=== PATIENT | female | born 1975 | race Caucasian/White ===

== ENCOUNTER 2020-10-10 20:18 | Emergency (ER) | payer OTHER ==
--- NOTE | 2020-10-10 22:21 | ED ---
General Adult HPI - General Chief complaint: Recheck/Abnormal Lab/Rx Stated complaint: sent from custodial for covid exposure Time Seen by Provider: 10/10/20 20:54 Source: patient Mode of arrival: ambulatory Limitations: no limitations - History of Present Illness Initial comments: This patient is a 45-year-old woman currently staying at a woman's custodial, who had a coronal virus exposure. In order to be allowed back into the custodial, they require a negative virus test is what she is here to see about. The patient states she is not having any symptoms. Denies fever or chills, congestion, cough, dyspnea, vomiting or diarrhea. -: hour(s) Consistency: constant Improves with: none Worsens with: none Associated Symptoms: denies other symptoms Treatments Prior to Arrival: none Review of Systems ROS Statement: Those systems with pertinent positive or pertinent negative responses have been documented in the HPI. ROS Other: All systems not noted in ROS Statement are negative. Constitutional: Denies: fever, chills Eyes: Denies: eye discharge ENT: Denies: throat pain, congestion Respiratory: Denies: cough, dyspnea Cardiovascular: Denies: chest pain, palpitations Gastrointestinal: Denies: vomiting, diarrhea Genitourinary: Denies: dysuria Neurological: Denies: headache Past Medical History Past Medical History: No Reported History History of Any Multi-Drug Resistant Organisms: None Reported Past Surgical History: No Surgical Hx Reported Smoking Status: Current every day smoker Past Alcohol Use History: None Reported Past Drug Use History: None Reported General Exam Limitations: no limitations General appearance: alert, in no apparent distress Head exam: Present: atraumatic, normocephalic Eye exam: Present: normal appearance. Absent: scleral icterus, conjunctival injection ENT exam: Present: normal oropharynx Respiratory exam: Present: normal lung sounds bilaterally. Absent: respiratory distress, wheezes, rales, rhonchi, stridor Cardiovascular Exam: Present: regular rate, normal rhythm, normal heart sounds. Absent: systolic murmur, diastolic murmur, rubs, gallop Skin exam: Present: warm, dry, intact, normal color. Absent: rash Course Vital Signs 10/10/20 20:44 Temperature 98.5 F Pulse Rate 80 Respiratory 18 Rate Blood Pressure 143/85 O2 Sat by Pulse 99 Oximetry Medical Decision Making - Lab Data Lab Results 10/10/20 Range/Units 21:40 Coronavirus (PCR) Not Detected (Not Detectd) Disposition Clinical Impression: Exposure to COVID-19 virus Disposition: HOME SELF-CARE Condition: Good Instructions (If sedation given, give patient instructions): Normal Exam (ED) Referrals: Marcus Vallejo MD [Primary Care Provider] - 1-2 days
[2020-10-10 22:44] VITALS: BP 130/70; PULSE 81; RESP 16; TEMP 98.2
== END 2020-10-10 22:43 | disposition home or self-care (01) ==
LOC: EC 20:18
DX: Z20.822 Contact with and (suspected) exposure to COVID-19 (principal)
CPT/HCPCS: 87635; 99283

== ENCOUNTER 2020-11-30 12:57 | Emergency (ER) | payer OTHER ==
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
[2020-11-30] MEDS ORDERED: KETOROLAC 15 MG/ML 1 ML VIAL IVP STA (14:46)
[2020-11-30 15:02] VITALS: BP 115/84; PULSE 67; RESP 16; TEMP 98.1
== END 2020-11-30 14:55 | disposition home or self-care (01) ==
LOC: EC 12:57
DX: S22.20XA Unspecified fracture of sternum, initial encounter for closed fracture (principal); F17.200 Nicotine dependence, unspecified, uncomplicated; Z20.822 Contact with and (suspected) exposure to COVID-19; V49.50XA Passenger injured in collision with unspecified motor vehicles in traffic accident, initial encounter; Y92.410 Unspecified street and highway as the place of occurrence of the external cause
CPT/HCPCS: 71046; 71120; 93005; 96374; 99284

== ENCOUNTER 2021-06-03 09:52 | Emergency (ER) | payer OTHER ==
[2021-06-03 11:45] VITALS: RESP 18
[2021-06-03] MEDS ORDERED: DEXAMETHASONE SOD PHOSPHATE 10 MG/ML 1 ML VIAL IM STA (13:12)
[2021-06-03] MEDS ORDERED: ALBUTEROL HFA INHALER INHALATION STA (13:12)
--- NOTE | 2021-06-03 13:55 | XR ---
EXAMINATION TYPE: XR chest 2V DATE OF EXAM: 06/03/2021 COMPARISON: Chest x-ray November 30, 2020 HISTORY: Blurry vision. Shakiness. COVID. TECHNIQUE: Frontal and lateral views of the chest are obtained. FINDINGS: There is mild chronic parenchymal changes bilaterally without suspicious focal air space opacity, pleural effusion, or pneumothorax seen. The cardiac silhouette size is stab le and within normal limits. The osseous structures are intact. IMPRESSION: No acute process. No significant change from prior.
[2021-06-03] MEDS ORDERED: IBUPROFEN 600 MG TAB PO STA (14:04)
[2021-06-03] MEDS ORDERED: ACETAMINOPHEN TAB 325 MG TAB PO STA (14:04)
--- NOTE | 2021-06-03 14:05 | ED ---
General Adult HPI - General Chief complaint: ENT Stated complaint: covid swab Time Seen by Provider: 06/03/21 12:56 Source: patient, RN notes reviewed Mode of arrival: ambulatory Limitations: no limitations - History of Present Illness Initial comments: Patient is a 46-year-old female that presents to the emergency department complaining of ongoing symptoms of Covid. Patient tested positive for Covid on the . Patient notes that she came in for reevaluation to see if she still had Covid. Patient denied any new symptoms. Patient was otherwise well- appearing. She denied chest pain headache nausea vomiting diarrhea constipation fever fatigue chills. - Related Data Home Medications Medication Instructions Recorded Confirmed FLUoxetine HCL [PROzac] 40 mg PO HS 11/30/20 06/03/21 Gabapentin [Neurontin] 300 mg PO TID 11/30/20 06/03/21 tiZANidine HCL 4 mg PO BID PRN 11/30/20 06/03/21 Acetaminophen Tab [Tylenol Tab] 1,000 mg PO Q6HR PRN 06/03/21 06/03/21 Albuterol Sulfate [Proair Hfa] 1 - 2 puff INHALATION RT-Q6H PRN 06/03/21 06/03/21 Methadone HCl [Methadone Intensol] 108 mg PO DAILY 06/03/21 06/03/21 Allergies Allergy/AdvReac Type Severity Reaction Status Date / Time latex Allergy Rash/Hives Verified 06/03/21 13:28 lavender (Lavandula Allergy Rash/Hives Verified 06/03/21 13:28 angustifolia) baclofen AdvReac Severe Jittery, Verified 06/03/21 13:28 dizzy Review of Systems ROS Statement: Those systems with pertinent positive or pertinent negative responses have been documented in the HPI. ROS Other: All systems not noted in ROS Statement are negative. Past Medical History Past Medical History: Pneumonia Additional Past Medical History / Comment(s): Covid +, migraines History of Any Multi-Drug Resistant Organisms: None Reported Past Surgical History: Tonsillectomy Past Psychological History: Anxiety, Bipolar, PTSD Smoking Status: Current every day smoker Past Alcohol Use History: None Reported Past Drug Use History: Opiates General Exam Limitations: no limitations General appearance: alert, in no apparent distress Head exam: Present: atraumatic, normocephalic, normal inspection Eye exam: Present: normal appearance, PERRL, EOMI. Absent: scleral icterus, conjunctival injection, periorbital swelling ENT exam: Present: normal exam, mucous membranes moist Neck exam: Present: normal inspection. Absent: tenderness, meningismus, lymphadenopathy Respiratory exam: Present: normal lung sounds bilaterally. Absent: respiratory distress, wheezes, rales, rhonchi, stridor Cardiovascular Exam: Present: regular rate, normal rhythm, normal heart sounds. Absent: systolic murmur, diastolic murmur, rubs, gallop, clicks GI/Abdominal exam: Present: soft, normal bowel sounds. Absent: distended, tenderness, guarding, rebound, rigid Extremities exam: Present: normal inspection, full ROM, normal capillary refill. Absent: tenderness, pedal edema, joint swelling, calf tenderness Neurological exam: Present: alert, oriented X3 Psychiatric exam: Present: normal affect, normal mood Skin exam: Present: warm, dry, intact, normal color. Absent: rash Course Vital Signs 06/03/21 11:42 Temperature 100.0 F H Pulse Rate 82 Respiratory 18 Rate Blood Pressure 117/73 O2 Sat by Pulse 95 Oximetry Medical Decision Making - Medical Decision Making 26-year-old female Covid-positive 05/21/2021 for reevaluation of symptoms. A she was informed that the symptoms may linger and persist for several weeks to months. Patient informed that she would most likely still test positive so a repeat test is not warranted. Chest x-ray, 10 mg of Decadron, albuterol inhaler ordered. Chest x-ray shows no acute process. no change from prior. Patient is agreeable discharge home with follow-up to primary care. Vital signs are stable upon discharge. Case discussed with Dr. Yi, patient discharge home. - Radiology Data Radiology results: report reviewed, image reviewed Chest x-ray: No acute pulmonary process. No change from prior. Disposition Clinical Impression: COVID Disposition: HOME SELF-CARE Condition: Stable Instructions (If sedation given, give patient instructions): Coronavirus Disease 2019 (COVID-19) Additional Instructions: Please return to the Emergency Department if symptoms worsen or any other concerns. Is patient prescribed a controlled substance at d/c from ED?: No Referrals: Rosie Sweeney MD [Primary Care Provider] - 1-2 days Time of Disposition: 14:05
[2021-06-03 14:32] VITALS: BP 113/73; PULSE 88; TEMP 98.3
== END 2021-06-03 14:34 | disposition home or self-care (01) ==
LOC: EC 09:52
DX: U07.1 COVID-19 (principal); G43.909 Migraine, unspecified, not intractable, without status migrainosus; F41.9 Anxiety disorder, unspecified; F31.9 Bipolar disorder, unspecified; F43.10 Post-traumatic stress disorder, unspecified; Z79.51 Long term (current) use of inhaled steroids
CPT/HCPCS: 94640; 71046; 99283; 96372; J1100

== ENCOUNTER 2022-01-09 14:12 | Emergency (ER) | payer OTHER ==
[2022-01-09 16:03] VITALS: BP 90/58; PULSE 80; RESP 16; TEMP 98.4
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
== END 2022-01-09 17:01 | disposition home or self-care (01) ==
LOC: EC 14:12
DX: K02.9 Dental caries, unspecified (principal); F17.200 Nicotine dependence, unspecified, uncomplicated; Z91.040 Latex allergy status; Z91.048 Other nonmedicinal substance allergy status; Z88.6 Allergy status to analgesic agent

== ENCOUNTER 2022-02-13 15:29 | Emergency (ER) | payer OTHER ==
[2022-02-13] MEDS ORDERED: ONDANSETRON 4 MG/2 ML VIAL IVP STA (16:06)
[2022-02-13] MEDS ORDERED: MORPHINE SULFATE 4 MG/ML SYRINGE IV STA (16:06)
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
[2022-02-13 16:37] LABS: Anisocytosis Slight; Basophils % (A) 0 %; Eosinophils # (A) 0.2 k/uL (0-0.7); Eosinophils % (A) 4 %; HCT 33.3 % (34.0-46.0); HGB 9.8 gm/dL (11.4-16.0); Hypochromasia Marked; Lymphocytes # (A) 1.5 k/uL (1.0-4.8); Lymphocytes % (A) 26 %; MCH 23.4 pg (25.0-35.0); MCHC 29.5 g/dL (31.0-37.0); MCV 79.2 fL (80.0-100.0); Mean Platelet Volume 8.8; Microcytosis Slight; Monocytes # (A) 0.4 k/uL (0-1.0); Monocytes % (A) 6 %; Neutrophils # (A) 3.7 k/uL (1.3-7.7); Neutrophils % (A) 62 %; Platelet Count 272 k/uL (150-450); RDW 16.7 % (11.5-15.5)
[2022-02-13 16:45] LABS: ALT 11 U/L (4-34); AST 22 U/L (14-36); African American GFR (CKD) >90 (>60 ml/min/1.73 sqM); Albumin 3.8 g/dL (3.5-5.0); Alkaline Phosphatase 69 U/L (38-126); Amylase 33 U/L (30-110); Anion Gap 8 mmol/L; Blood Urea Nitrogen 15 mg/dL (7-17); Calcium 8.3 mg/dL (8.4-10.2); Carbon Dioxide 26 mmol/L (22-30); Chloride 102 mmol/L (98-107); Glucose 75 mg/dL (74-99); Lipase 39 U/L (23-300); Non-African American GFR(CKD) >90 (>60 ml/min/1.73 sqM); Potassium 3.5 mmol/L (3.5-5.1); Sodium 136 mmol/L (137-145); Total Bilirubin 0.2 mg/dL (0.2-1.3); Total Protein 6.2 g/dL (6.3-8.2)
[2022-02-13 17:46] LABS: Appearance,Urine Cloudy (Clear); Bilirubin,Urine Negative (Negative); Blood,Urine Negative (Negative); Color,Urine Light Yellow; Glucose,Urine (UA) Negative (Negative); Ketones,Urine Negative (Negative); Leukocyte Esterase,Urine Small (Negative); Mucus,Urine Rare /hpf; Nitrite,Urine Negative (Negative); PH, Urine 6.5 (5.0-8.0); Protein,Urine Negative (Negative); RBC,Urine 1 /hpf (0-5); Specific Gravity,Urine 1.011 (1.001-1.035); Squamous Epithelial Cell,Urine 12 /hpf (0-4); Urobilinogen,Urine <2.0 mg/dL (<2.0); WBC,Urine 3 /hpf (0-5)
--- NOTE | 2022-02-13 18:27 | CT ---
EXAMINATION TYPE: CT abdomen pelvis w con CT DLP: 903.4 mGycm, Automated exposure control for dose reduction was used. DATE OF EXAM: 02/13/2022 5:48 PM COMPARISON: No relevant priors. CLINICAL INDICATION:Female, 46 years old with history of pain; Abdominal pain, N/V/D TECHNIQUE: Axial CT of the abdomen and pelvis. Sagittal and coronal reformats were created on a [employer] workstation. Contrast used:100 mL of Isovue 300 with IV Contrast, Oral contrast used: without Oral Contrast FINDINGS: LOWER CHEST: Unremarkable ABDOMEN LIVER: Focal fatty infiltration along the ligamentum teres. Subtle hypodensity along the right hepati c margin posteriorly measuring 2.8 cm. GALLBLADDER AND BILE DUCTS: No evidence for cholelithiasis. Prominent appearance to the central intra hepatic biliary ducts. Common bile duct is prominent in size measuring up to 9 mm in width. There is fusiform tapering to the level of the ampulla. No evidence for filling defects or stricturing. PANCREAS: Unremarkable. SPLEEN: Normal with small splenule. ADRENAL GLANDS: Unremarkable. KIDNEYS AND URETERS: No evidence of hydronephrosis or renal calculus. The ureters are unremarkable. PELVIS BLADDER: Unremarkable REPRODUCTIVE: Unremarkable. ABDOMEN & PELVIS STOMACH AND BOWEL: Stomach is normal in appearance. No evidence of bowel obstruction. PERITONEUM: No evidence of pneumoperitoneum or free fluid. VASCULATURE: No evidence of aortic aneurysm. Pelvic phleboliths. MUSCULOSKELETAL: Severe osteoarthritic and discogenic changes of L4-L5 and L5-S1. No aggressive osseo us lesions LYMPH NODES: Few prominent pericaval lymph nodes measuring up to 8 mm in width. No evidence for suspi cious lymphadenopathy. SOFT TISSUE/ABDOMINAL WALL: No acute findings. IMPRESSION: 1. Mild common bile duct dilatation without evidence for choledocholithiasis, stricture or luminal de fects. Further evaluation with nonemergent ERCP/MRCP may be of benefit. 2. Focal hepatic steatosis.
[2022-02-13 18:45] VITALS: RESP 18
[2022-02-13 19:34] VITALS: BP 129/92; PULSE 84; TEMP 98.4
== END 2022-02-13 19:43 | disposition home or self-care (01) ==
LOC: EC 15:29
DX: R10.11 Right upper quadrant pain (principal); K92.1 Melena; F31.9 Bipolar disorder, unspecified; F41.9 Anxiety disorder, unspecified; F17.200 Nicotine dependence, unspecified, uncomplicated; Z91.040 Latex allergy status; Z91.048 Other nonmedicinal substance allergy status; Z88.6 Allergy status to analgesic agent; Z79.899 Other long term (current) drug therapy
CPT/HCPCS: 36415; 80053; 82150; 83605; 83690; 84484; 85025; 85730; 82272; 81001; 74177; 99285; 96374; 96375; J2270; J2405; Q9967

== ENCOUNTER 2022-02-14 12:25 | Emergency (ER) | payer OTHER ==
[2022-02-14 12:37] VITALS: BP 100/79; PULSE 50; RESP 16; TEMP 98
--- NOTE | 2022-02-14 13:23 | ED ---
Recheck HPI - General Chief Complaint: Recheck/Abnormal Lab/Rx Stated Complaint: Covid test Time Seen by Provider: 02/14/22 12:44 Source: patient Mode of arrival: ambulatory Limitations: no limitations - History of Present Illness Initial Comments: Patient presents to the emergency department for a COVID test as required for readmission into her nursing home that she is living in after being at the hospital yesterday. She denies any symptoms of COVID including any chest pain, shortness of breath, fevers or chills. - Related Data Home Medications Medication Instructions Recorded Confirmed tiZANidine HCL 4 mg PO BID PRN 11/30/20 02/13/22 Albuterol Sulfate [Proair Hfa] 2 puff INHALATION RT-Q6H PRN 06/03/21 02/13/22 Ergocalciferol (Vitamin D2) 1,250 mcg PO TUTH 02/13/22 02/13/22 [Drisdol (50,000 Iu)] FLUoxetine HCL [Sarafem] 60 mg PO DAILY 02/13/22 02/13/22 Gabapentin 600 mg PO BID 02/13/22 02/13/22 Ibuprofen [Motrin] 600 mg PO TID PRN 02/13/22 02/13/22 Methadone (Unknown Dose) 1 dose PO DAILY 02/13/22 02/13/22 Allergies Allergy/AdvReac Type Severity Reaction Status Date / Time latex Allergy Rash/Hives Verified 02/14/22 12:37 lavender (Lavandula Allergy Rash/Hives Verified 02/14/22 12:37 angustifolia) baclofen AdvReac Severe Jittery, Verified 02/14/22 12:37 dizzy Review of Systems ROS Statement: Those systems with pertinent positive or pertinent negative responses have been documented in the HPI. ROS Other: All systems not noted in ROS Statement are negative. Past Medical History Past Medical History: Pneumonia Additional Past Medical History / Comment(s): Covid +, migraines History of Any Multi-Drug Resistant Organisms: None Reported Past Surgical History: Tonsillectomy Past Psychological History: Anxiety, Bipolar, PTSD Smoking Status: Current every day smoker Past Alcohol Use History: None Reported Past Drug Use History: Opiates General Exam Limitations: no limitations General appearance: alert, in no apparent distress Head exam: Present: atraumatic, normocephalic, normal inspection Eye exam: Present: normal appearance, PERRL, EOMI. Absent: scleral icterus, conjunctival injection, periorbital swelling ENT exam: Present: normal exam, mucous membranes moist Neck exam: Present: normal inspection Respiratory exam: Absent: respiratory distress, accessory muscle use Extremities exam: Absent: pedal edema, joint swelling Back exam: Present: normal inspection Neurological exam: Present: alert, oriented X3, CN II-XII intact Psychiatric exam: Present: normal affect, normal mood Skin exam: Present: warm, dry, intact, normal color. Absent: rash Course Vital Signs 02/14/22 02/14/22 12:35 12:39 Temperature 98.0 F Pulse Rate 50 L Respiratory 16 16 Rate Blood Pressure 100/79 O2 Sat by Pulse 95 Oximetry Medical Decision Making - Medical Decision Making Will check rapid COVID as required for nursing home readmission. COVID swab negative. Will provide a copy of results for readmission. Case discussed Dr. Hale. - Lab Data Lab Results 02/14/22 Range/Units 12:39 Coronavirus (PCR) Not Detected (Not Detectd) Disposition Clinical Impression: Encounter for screening for COVID-19 Disposition: HOME SELF-CARE Condition: Stable Additional Instructions: Please return to the Emergency Department if symptoms worsen or any other concerns. Is patient prescribed a controlled substance at d/c from ED?: No Referrals: Petra Diaz FNPBC [Primary Care Provider] - 1-2 days Time of Disposition: 13:28
== END 2022-02-14 13:39 | disposition home or self-care (01) ==
LOC: EC 12:25
DX: Z20.822 Contact with and (suspected) exposure to COVID-19 (principal); F17.200 Nicotine dependence, unspecified, uncomplicated; Z91.040 Latex allergy status; Z88.8 Allergy status to other drugs, medicaments and biological substances
CPT/HCPCS: 87635

== ENCOUNTER 2022-04-20 11:06 | Emergency (ER) | payer OTHER ==
[2022-04-20 11:14] VITALS: TEMP 98.2
--- NOTE | 2022-04-20 11:30 | ED ---
General Adult HPI - General Chief complaint: Syncope Stated complaint: Near-syncope Time Seen by Provider: 04/20/22 11:15 Source: patient, EMS, RN notes reviewed Mode of arrival: EMS Limitations: no limitations - History of Present Illness Initial comments: Patient is a pleasant 47-year-old female presenting to the emergency department with concern with near-syncopal episodes. Patient had a couple episodes this morning. Patient states she feels very drowsy like she is going to fall asleep passed out. Patient has not loss consciousness or passed out. Patient does have history of similar episodes previously, dozens of times. Patient states she did take trazodone for only a second time in her life last night and does feel drowsy related to this. Patient states last time she took it was years ago. Patient is at [facility] secondary to crack cocaine use. Patient also be discharged from [facility] tomorrow. Patient currently symptom-free except for feeling drowsy - Related Data Home Medications Medication Instructions Recorded Confirmed tiZANidine HCL 4 mg PO BID PRN 11/30/20 02/13/22 Albuterol Sulfate [Proair Hfa] 2 puff INHALATION RT-Q6H PRN 06/03/21 02/13/22 Ergocalciferol (Vitamin D2) 1,250 mcg PO TUTH 02/13/22 02/13/22 [Drisdol (50,000 Iu)] FLUoxetine HCL [Sarafem] 60 mg PO DAILY 02/13/22 02/13/22 Gabapentin 600 mg PO BID 02/13/22 02/13/22 Ibuprofen [Motrin] 600 mg PO TID PRN 02/13/22 02/13/22 Methadone (Unknown Dose) 1 dose PO DAILY 02/13/22 02/13/22 Allergies Allergy/AdvReac Type Severity Reaction Status Date / Time latex Allergy Rash/Hives Verified 04/20/22 12:14 lavender (Lavandula Allergy Rash/Hives Verified 04/20/22 12:14 angustifolia) baclofen AdvReac Severe Jittery, Verified 04/20/22 12:14 dizzy Review of Systems ROS Statement: Those systems with pertinent positive or pertinent negative responses have been documented in the HPI. ROS Other: All systems not noted in ROS Statement are negative. Constitutional: Denies: fever Eyes: Denies: eye pain ENT: Denies: ear pain Respiratory: Denies: cough, dyspnea Cardiovascular: Denies: chest pain Gastrointestinal: Denies: abdominal pain Genitourinary: Denies: dysuria Musculoskeletal: Denies: back pain Skin: Denies: rash Neurological: Denies: headache, weakness, confusion Past Medical History Past Medical History: Pneumonia Additional Past Medical History / Comment(s): Covid +, migraines History of Any Multi-Drug Resistant Organisms: None Reported Past Surgical History: Tonsillectomy Past Psychological History: Anxiety, Bipolar, PTSD Smoking Status: Current every day smoker Past Alcohol Use History: None Reported Past Drug Use History: Opiates General Exam Limitations: no limitations General appearance: alert, in no apparent distress Head exam: Present: atraumatic Eye exam: Present: normal appearance, PERRL, EOMI ENT exam: Present: normal oropharynx Neck exam: Present: normal inspection. Absent: tenderness Respiratory exam: Present: normal lung sounds bilaterally Cardiovascular Exam: Present: regular rate, normal rhythm, normal heart sounds Expanded Peripheral pulses: 2+: Radial (R), Radial (L), Posterior Tibialis (R), Posterior Tibialis (L) GI/Abdominal exam: Present: soft. Absent: tenderness Extremities exam: Present: normal inspection. Absent: pedal edema, calf tenderness Neurological exam: Present: alert, oriented X3, CN II-XII intact. Absent: motor sensory deficit Expanded Neurological exam: Present: protecting the airway Speech: Present: fluid speech Cranial nerves: EOM's Intact: Normal, Facial Sensation: Normal Sensory exam: Upper Extremity Light Touch: Normal, Lower Extremity Light Touch: Normal Motor strength exam: RUE: 5, LUE: 5, RLE: 5, LLE: 5 Eye Response: (4) open spontaneously Motor Response: (6) obeys commands Verbal Response: (5) oriented Psychiatric exam: Present: normal affect, normal mood Skin exam: Present: normal color Course Vital Signs 04/20/22 04/20/22 11:07 11:13 Temperature 97.3 F L 98.2 F Pulse Rate 63 68 Respiratory 18 18 Rate Blood Pressure 125/93 125/93 O2 Sat by Pulse 99 99 Oximetry EKG Findings - EKG Comments: EKG Findings:: Sinus rhythm rate 60. UT 151. QRS 98. QT 449. QTC 446. Normal axis. Normal QRS. No acute ST change. Medical Decision Making - Medical Decision Making Patient reevaluated and resting comfortably in bed, easily arousable. Patient symptom-free. Patient states she is chronically on methadone. Patient updated on results and need for follow-up. - Lab Data Result diagrams: 04/20/22 11:33 04/20/22 11:33 Lab Results 04/20/22 04/20/22 04/20/22 Range/Units 11:33 11:33 11:33 WBC 5.1 (3.8-10.6) k/uL RBC 4.12 (3.80-5.40) m/uL Hgb 9.8 L (11.4-16.0) gm/dL Hct 34.0 (34.0-46.0) % MCV 82.4 (80.0-100.0) fL MCH 23.8 L (25.0-35.0) pg MCHC 28.9 L (31.0-37.0) g/dL RDW 17.4 H (11.5-15.5) % Plt Count 254 (150-450) k/uL MPV 9.2 Neutrophils % 37 % Lymphocytes % 51 % Monocytes % 5 % Eosinophils % 4 % Basophils % 1 % Neutrophils # 1.9 (1.3-7.7) k/uL Lymphocytes # 2.6 (1.0-4.8) k/uL Monocytes # 0.2 (0-1.0) k/uL Eosinophils # 0.2 (0-0.7) k/uL Basophils # 0.0 (0-0.2) k/uL Hypochromasia Marked Anisocytosis Slight PT (9.0-12.0) sec INR (<1.2) APTT (22.0-30.0) sec Sodium 136 L (137-145) mmol/L Potassium 4.9 (3.5-5.1) mmol/L Chloride 105 (98-107) mmol/L Carbon Dioxide 24 (22-30) mmol/L Anion Gap 7 mmol/L BUN 6 L (7-17) mg/dL Creatinine 0.58 (0.52-1.04) mg/dL Est GFR (CKD-EPI)AfAm >90 (>60 ml/min/1.73 sqM) Est GFR (CKD-EPI)NonAf >90 (>60 ml/min/1.73 sqM) Glucose 61 L (74-99) mg/dL Calcium 8.4 (8.4-10.2) mg/dL Magnesium 2.0 (1.6-2.3) mg/dL Total Bilirubin 0.4 (0.2-1.3) mg/dL AST 25 (14-36) U/L ALT 14 (4-34) U/L Alkaline Phosphatase 45 (38-126) U/L Troponin I (0.000-0.034) ng/mL Total Protein 6.0 L (6.3-8.2) g/dL Albumin 4.0 (3.5-5.0) g/dL Urine Color Colorless Urine Appearance Clear (Clear) Urine pH 7.0 (5.0-8.0) Ur Specific [place] 1.003 (1.001-1.035) Urine Protein Negative (Negative) Urine Glucose (UA) Negative (Negative) Urine Ketones Negative (Negative) Urine Blood Negative (Negative) Urine Nitrite Negative (Negative) Urine Bilirubin Negative (Negative) Urine Urobilinogen <2.0 (<2.0) mg/dL Ur Leukocyte Esterase Negative (Negative) Urine Opiates Screen Not Detected (NotDetected) Ur Oxycodone Screen Not Detected (NotDetected) Urine Methadone Screen Detected H (NotDetected) Ur Propoxyphene Screen Not Detected (NotDetected) Ur Barbiturates Screen Not Detected (NotDetected) U Tricyclic Antidepress Not Detected (NotDetected) Ur Phencyclidine Scrn Not Detected (NotDetected) Ur Amphetamines Screen Not Detected (NotDetected) U Methamphetamines Scrn Not Detected (NotDetected) U Benzodiazepines Scrn Not Detected (NotDetected) Urine Cocaine Screen Not Detected (NotDetected) U Marijuana (THC) Screen Not Detected (NotDetected) 04/20/22 04/20/22 Range/Units 11:36 11:36 WBC (3.8-10.6) k/uL RBC (3.80-5.40) m/uL Hgb (11.4-16.0) gm/dL Hct (34.0-46.0) % MCV (80.0-100.0) fL MCH (25.0-35.0) pg MCHC (31.0-37.0) g/dL RDW (11.5-15.5) % Plt Count (150-450) k/uL MPV Neutrophils % % Lymphocytes % % Monocytes % % Eosinophils % % Basophils % % Neutrophils # (1.3-7.7) k/uL Lymphocytes # (1.0-4.8) k/uL Monocytes # (0-1.0) k/uL Eosinophils # (0-0.7) k/uL Basophils # (0-0.2) k/uL Hypochromasia Anisocytosis PT 10.6 (9.0-12.0) sec INR 1.0 (<1.2) APTT 20.8 L (22.0-30.0) sec Sodium (137-145) mmol/L Potassium (3.5-5.1) mmol/L Chloride (98-107) mmol/L Carbon Dioxide (22-30) mmol/L Anion Gap mmol/L BUN (7-17) mg/dL Creatinine (0.52-1.04) mg/dL Est GFR (CKD-EPI)AfAm (>60 ml/min/1.73 sqM) Est GFR (CKD-EPI)NonAf (>60 ml/min/1.73 sqM) Glucose (74-99) mg/dL Calcium (8.4-10.2) mg/dL Magnesium (1.6-2.3) mg/dL Total Bilirubin (0.2-1.3) mg/dL AST (14-36) U/L ALT (4-34) U/L Alkaline Phosphatase (38-126) U/L Troponin I <0.012 (0.000-0.034) ng/mL Total Protein (6.3-8.2) g/dL Albumin (3.5-5.0) g/dL Urine Color Urine Appearance (Clear) Urine pH (5.0-8.0) Ur Specific [place] (1.001-1.035) Urine Protein (Negative) Urine Glucose (UA) (Negative) Urine Ketones (Negative) Urine Blood (Negative) Urine Nitrite (Negative) Urine Bilirubin (Negative) Urine Urobilinogen (<2.0) mg/dL Ur Leukocyte Esterase (Negative) Urine Opiates Screen (NotDetected) Ur Oxycodone Screen (NotDetected) Urine Methadone Screen (NotDetected) Ur Propoxyphene Screen (NotDetected) Ur Barbiturates Screen (NotDetected) U Tricyclic Antidepress (NotDetected) Ur Phencyclidine Scrn (NotDetected) Ur Amphetamines Screen (NotDetected) U Methamphetamines Scrn (NotDetected) U Benzodiazepines Scrn (NotDetected) Urine Cocaine Screen (NotDetected) U Marijuana (THC) Screen (NotDetected) Disposition Clinical Impression: Near syncope Disposition: HOME SELF-CARE Condition: Stable Instructions (If sedation given, give patient instructions): Near Syncope (ED) Additional Instructions: Please do follow-up with primary care physician in the next day or 2 for recheck. Return for passing out, confusion or weakness, pain, worsening or changing symptoms or other concerns. Is patient prescribed a controlled substance at d/c from ED?: No Referrals: Rosie Sweeney MD [Primary Care Provider] - 1-2 days Time of Disposition: 12:44
[2022-04-20 11:50] LABS: Anisocytosis Slight; Basophils % (A) 1 %; Eosinophils # (A) 0.2 k/uL (0-0.7); Eosinophils % (A) 4 %; HGB 9.8 gm/dL (11.4-16.0); Hypochromasia Marked; Lymphocytes # (A) 2.6 k/uL (1.0-4.8); Lymphocytes % (A) 51 %; MCH 23.8 pg (25.0-35.0); MCHC 28.9 g/dL (31.0-37.0); MCV 82.4 fL (80.0-100.0); Mean Platelet Volume 9.2; Monocytes # (A) 0.2 k/uL (0-1.0); Monocytes % (A) 5 %; Neutrophils # (A) 1.9 k/uL (1.3-7.7); Neutrophils % (A) 37 %; Platelet Count 254 k/uL (150-450); RBC 4.12 m/uL (3.80-5.40); RDW 17.4 % (11.5-15.5); WBC 5.1 k/uL (3.8-10.6)
[2022-04-20 11:55] LABS: Appearance,Urine Clear (Clear); Bilirubin,Urine Negative (Negative); Blood,Urine Negative (Negative); Color,Urine Colorless; Glucose,Urine (UA) Negative (Negative); Ketones,Urine Negative (Negative); Leukocyte Esterase,Urine Negative (Negative); Nitrite,Urine Negative (Negative); Protein,Urine Negative (Negative); Specific Gravity,Urine 1.003 (1.001-1.035); Urobilinogen,Urine <2.0 mg/dL (<2.0)
--- NOTE | 2022-04-20 11:56 | CT ---
EXAMINATION TYPE: CT brain wo con DATE OF EXAM: 04/20/2022 COMPARISON: None. HISTORY: syncope CT DLP: 1137.4 mGycm. Automated Exposure Control for Dose Reduction was Utilized. TECHNIQUE: CT scan of the head is performed without contrast. FINDINGS: There is no acute intracranial hemorrhage, mass effect, or midline shift identified. The ventricles and sulci are within normal limits in size. Landa-white matter differentiation is maintain ed. The globes are intact and the visualized sinuses are clear. No suspicious opacification of the ma stoid air cells bilaterally. IMPRESSION: No acute intracranial hemorrhage or midline shift is seen.
--- NOTE | 2022-04-20 12:00 | XR ---
EXAMINATION TYPE: XR chest 2V DATE OF EXAM: 04/20/2022 11:55 AM COMPARISON: Chest radiographs from 06/03/2021. TECHNIQUE: XR chest 2V Frontal and lateral views of the chest. CLINICAL INDICATION:Female, 47 years old with history of syncope; FINDINGS: Lungs/Pleura: There is no evidence of pleural effusion, focal consolidation, or pneumothorax. Mild ch ronic parenchymal changes bilaterally. Pulmonary vascularity: Unremarkable. Heart/mediastinum: Cardiomediastinal silhouette is unremarkable. Musculoskeletal: No acute osseous pathology. IMPRESSION: No acute cardiopulmonary disease/process. No significant change from prior.
[2022-04-20 12:04] LABS: Amphetamine Screen,Urine Not Detected (NotDetected); Barbiturate Screen,Urine Not Detected (NotDetected); Benzodiazepines Screen,Urine Not Detected (NotDetected); Cocaine Screen,Urine Not Detected (NotDetected); Methadone Screen, Urine Detected (NotDetected); Opiate Screen,Urine Not Detected (NotDetected); Oxycodone Screen, Urine Not Detected (NotDetected); Phencyclidine Screen,Urine Not Detected (NotDetected); Tricyclic Antidepressant,Urine Not Detected (NotDetected); Urn Cannabinoid Scrn Not Detected (NotDetected)
[2022-04-20 12:06] LABS: Partial Thromboplastin Time 20.8 sec (22.0-30.0); Prothrombin Time 10.6 sec (9.0-12.0)
[2022-04-20 12:13] LABS: ALT 14 U/L (4-34); AST 25 U/L (14-36); African American GFR (CKD) >90 (>60 ml/min/1.73 sqM); Alkaline Phosphatase 45 U/L (38-126); Anion Gap 7 mmol/L; Blood Urea Nitrogen 6 mg/dL (7-17); Calcium 8.4 mg/dL (8.4-10.2); Carbon Dioxide 24 mmol/L (22-30); Chloride 105 mmol/L (98-107); Glucose 61 mg/dL (74-99); Non-African American GFR(CKD) >90 (>60 ml/min/1.73 sqM); Potassium 4.9 mmol/L (3.5-5.1); Sodium 136 mmol/L (137-145); Total Bilirubin 0.4 mg/dL (0.2-1.3)
[2022-04-20] MEDS ORDERED: ACETAMINOPHEN TAB 325 MG TAB PO STA (13:06)
[2022-04-20 13:28] VITALS: BP 132/78; PULSE 62; RESP 18
== END 2022-04-20 13:28 | disposition home or self-care (01) ==
LOC: EC 11:06
DX: R55 Syncope and collapse (principal); F41.9 Anxiety disorder, unspecified; F31.9 Bipolar disorder, unspecified; F17.200 Nicotine dependence, unspecified, uncomplicated; Z91.040 Latex allergy status; Z91.048 Other nonmedicinal substance allergy status; Z88.6 Allergy status to analgesic agent; Z79.51 Long term (current) use of inhaled steroids; Z79.899 Other long term (current) drug therapy
CPT/HCPCS: 36415; 70450; 71046; 80053; 80306; 81003; 83735; 84484; 85025; 85610; 85730; 93005; 99285